=== PATIENT | female | born 1950 | race Caucasian/White ===

== ENCOUNTER 2021-09-19 14:51 | Emergency (ER) | payer MEDICARE, MEDICAID ==
[~2021-09-19] VITALS: Wt 65.3 kg
[2021-09-19 15:24] LABS: BASO % 0.3 % (0.0-1.0); EOS # 0.3 10*3/uL (0.0-0.4); EOS % 3.8 % (1.0-4.0); HEMATOCRIT 34.5 % (37.0-47.0); LYMPH # 1.5 10*3/uL (1.3-4.4); MEAN CELL VOLUME 79.5 fl (81.0-99.0); MEAN CORPUSCULAR HGB 25.1 pg (27.0-31.0); MEAN CORPUSCULAR HGB CONC 31.6 g/dl (33.0-37.0); MEAN PLATELET VOLUME 8.7 fl (9.6-12.3); MONO # 0.7 10*3/uL (0.1-1.0); MONO % 8.9 % (3.0-9.0); NEUT # 4.9 10*3/uL (2.3-7.9); NEUT % 66.6 % (47.0-73.0); PLATELET COUNT AUTOMATED 619 10*3/uL (130-400); RED BLOOD COUNT 4.34 10*6/uL (4.10-5.10); RED CELL DISTRI WIDTH 17.2 % (0-14.5); WHITE BLOOD COUNT 7.4 10*3/uL (4.8-10.8)
[2021-09-19 15:40] LABS: ALKALINE PHOSPHATASE 85 U/L (45-117); BUN 35 mg/dl (7-24); CHLORIDE 105 mmol/L (98-107); CREATININE 0.91 mg/dL (0.55-1.02); POTASSIUM 3.6 mmol/L (3.5-5.1); SGOT/AST 17 IU/L (3-35); SGPT/ALT 14 U/L (12-78); SODIUM 135 mmol/L (136-145); TOTAL PROTEIN 7.6 gm/dL (6.4-8.2)
== END 2021-09-19 17:14 ==
LOC: ED 14:51
PROVIDERS: Family Medicine
DX: T81.89XA Other complications of procedures, not elsewhere classified, initial encounter (principal); Y92.89 Other specified places as the place of occurrence of the external cause

== ENCOUNTER 2021-10-13 13:20 | Emergency (ER) | payer MEDICARE, MEDICAID ==
[~2021-10-13] VITALS: Ht 157.4 cm; Wt 53.5 kg
[~2021-10-13 13:20] MED LIST: ARGINAID POWDE1 EACH PO; DOXYCYCLINE50 M2 PO; FISH OIL + D31 EACH PO; FLUVOXAMINE MA150 M1 PO; LEVOTHYROXINE100 MC2 PO; MELOXICAM15 MG PO; MIRALAX17 GM PO; OMEPRAZOLE20 M2 PO; PAIN RELIEVER325 MG PO; PHOS-NAK PACKE1 EACH PO; SEROQUEL400 M1 PO; XANAX0.5 MG PO
[2021-10-13 13:59] LABS: BASO % 0.5 % (0.0-1.0); EOS # 0.3 10*3/uL (0.0-0.4); EOS % 4.4 % (1.0-4.0); HEMATOCRIT 37.5 % (37.0-47.0); LYMPH # 1.8 10*3/uL (1.3-4.4); LYMPH % 26.8 % (27.0-41.0); MEAN CELL VOLUME 81.5 fl (81.0-99.0); MEAN CORPUSCULAR HGB 25.4 pg (27.0-31.0); MEAN CORPUSCULAR HGB CONC 31.2 g/dl (33.0-37.0); MEAN PLATELET VOLUME 8.7 fl (9.6-12.3); MONO # 0.5 10*3/uL (0.1-1.0); MONO % 7.4 % (3.0-9.0); NEUT # 4.1 10*3/uL (2.3-7.9); NEUT % 60.7 % (47.0-73.0); PLATELET COUNT AUTOMATED 464 10*3/uL (130-400); RED CELL DISTRI WIDTH 18.5 % (0-14.5); WHITE BLOOD COUNT 6.7 10*3/uL (4.8-10.8)
[2021-10-13 14:19] LABS: ALKALINE PHOSPHATASE 82 U/L (45-117); BUN 28 mg/dl (7-24); CHLORIDE 108 mmol/L (98-107); CREATININE 0.83 mg/dL (0.55-1.02); POTASSIUM 3.4 mmol/L (3.5-5.1); SGOT/AST 17 IU/L (3-35); SGPT/ALT 15 U/L (12-78); SODIUM 141 mmol/L (136-145); TOTAL PROTEIN 6.7 gm/dL (6.4-8.2)
[2021-10-13 15:21] LABS: BILIRUBIN 1+ (Negative); BLOOD Negative (Negative); CLARITY Cloudy (Clear); COLOR Dark Yellow (Yellow); GLUCOSE Negative (Negative); KETONE Negative (Negative); LEUKO ESTERASE 1+ (Negative); NITRITE Negative (Negative); SPECIFIC GRAVITY 1.025 (1.001-1.030)
[2021-10-13 15:29] LABS: BACTERIA TRACE; MUCOUS 2+; WBC 21-30 wbc/hpf (0-5); YEAST 1+
== END 2021-10-13 19:09 ==
LOC: ED 13:20
PROVIDERS: Emergency Medicine
DX: L89.229 Pressure ulcer of left hip, unspecified stage (principal); L89.219 Pressure ulcer of right hip, unspecified stage; Z79.899 Other long term (current) drug therapy; K21.9 Gastro-esophageal reflux disease without esophagitis; E03.9 Hypothyroidism, unspecified; I48.91 Unspecified atrial fibrillation; Z90.710 Acquired absence of both cervix and uterus

== ENCOUNTER → 2021-10-16 | Outpatient (CLI) | payer MEDICARE, MEDICAID | LOC: WOUNDCARE 03:47 | PROVIDERS: ATTEND Nurse Practitioner Family | DX: L89.213 Pressure ulcer of right hip, stage 3 (principal); I48.91 Unspecified atrial fibrillation; E03.9 Hypothyroidism, unspecified; F90.9 Attention-deficit hyperactivity disorder, unspecified type; Z90.710 Acquired absence of both cervix and uterus ==

== ENCOUNTER → 2021-11-01 | Outpatient (CLI) | payer MEDICARE, MEDICAID | END | disposition home or self-care (01) | LOC: WOUNDCARE 01:44 | PROVIDERS: ATTEND Nurse Practitioner Family | DX: L89.213 Pressure ulcer of right hip, stage 3 (principal); I48.91 Unspecified atrial fibrillation; E03.9 Hypothyroidism, unspecified; F90.9 Attention-deficit hyperactivity disorder, unspecified type; Z90.710 Acquired absence of both cervix and uterus ==

== ENCOUNTER → 2021-11-08 | Outpatient (CLI) | payer MEDICARE, MEDICAID | END | disposition home or self-care (01) | LOC: WOUNDCARE 02:17 | PROVIDERS: ATTEND Nurse Practitioner Family | DX: L89.213 Pressure ulcer of right hip, stage 3 (principal); I48.91 Unspecified atrial fibrillation; E03.9 Hypothyroidism, unspecified; F90.9 Attention-deficit hyperactivity disorder, unspecified type; Z90.710 Acquired absence of both cervix and uterus ==

== ENCOUNTER 2022-12-15 05:02 | Emergency (ER) | payer OTHER ==
[~2022-12-15] VITALS: Ht 152.4 cm; Wt 69.4 kg
[2022-12-15 06:42] LABS: BILIRUBIN Negative (Negative); BLOOD 1+ (Negative); CLARITY Clear (Clear); COLOR Yellow (Yellow); GLUCOSE Negative (Negative); KETONE Negative (Negative); LEUKO ESTERASE 2+ (Negative); NITRITE Positive (Negative); SPECIFIC GRAVITY 1.025 (1.001-1.030); UROBILINOGEN 0.2 E.U./dl (0.0-1.0)
[2022-12-15 07:09] LABS: BACTERIA 4+; WBC 31-40 wbc/hpf (0-5)
[2022-12-15 08:30] LABS: BASO % 0.3 % (0.0-1.0); EOS # 0.2 10*3/uL (0.0-0.4); EOS % 1.2 % (1.0-4.0); LYMPH # 1.5 10*3/uL (1.3-4.4); LYMPH % 10.5 % (27.0-41.0); MEAN CORPUSCULAR HGB 23.6 pg (27.0-31.0); MEAN CORPUSCULAR HGB CONC 30.3 g/dl (33.0-37.0); MEAN PLATELET VOLUME 9.2 fl (9.6-12.3); MONO # 0.9 10*3/uL (0.1-1.0); MONO % 6.4 % (3.0-9.0); NEUT # 11.3 10*3/uL (2.3-7.9); NEUT % 81.1 % (47.0-73.0); PLATELET COUNT AUTOMATED 394 10*3/uL (130-400); RED BLOOD COUNT 4.36 10*6/uL (4.10-5.10)
[2022-12-15 08:53] LABS: ALKALINE PHOSPHATASE 81 U/L (46-116); BUN 36 mg/dl (9-23); CHLORIDE 108 mmol/L (98-107); LIPASE 44 U/L (12-53); POTASSIUM 4.4 mmol/L (3.4-5.1); TOTAL PROTEIN 6.8 gm/dL (6.0-8.0)
[2022-12-15 09:09] LABS: SGPT/ALT < 7 U/L (10-49)
[2022-12-15] MEDS ORDERED: SEPTDS PO (10:23)
== END 2022-12-15 10:57 ==
LOC: ED 05:02
PROVIDERS: Internal Medicine
DX: K59.02 Outlet dysfunction constipation (principal); N39.0 Urinary tract infection, site not specified; Z90.710 Acquired absence of both cervix and uterus

== ENCOUNTER 2023-03-29 08:50 | Inpatient (IN) | payer OTHER ==
[~2023-03-29] VITALS: Ht 165.1 cm; Wt 60.8 kg
[~2023-03-29 08:50] MED LIST changes: +SEPTDS PO
[2023-03-29 09:06] VITALS: BP 112/78
[2023-03-29 09:40] LABS: BASO % 0.4 % (0.0-1.0); EOS # 0.3 10*3/uL (0.0-0.4); EOS % 3.2 % (1.0-4.0); HEMATOCRIT 36.4 % (37.0-47.0); LYMPH # 1.3 10*3/uL (1.3-4.4); LYMPH % 14.9 % (27.0-41.0); MEAN CELL VOLUME 70.3 fl (81.0-99.0); MEAN CORPUSCULAR HGB CONC 29.9 g/dl (33.0-37.0); MEAN PLATELET VOLUME 10.1 fl (9.6-12.3); MONO # 0.5 10*3/uL (0.1-1.0); MONO % 5.5 % (3.0-9.0); NEUT # 6.5 10*3/uL (2.3-7.9); NEUT % 75.6 % (47.0-73.0); PLATELET COUNT AUTOMATED 325 10*3/uL (130-400); RED BLOOD COUNT 5.18 10*6/uL (4.10-5.10); RED CELL DISTRI WIDTH 17.7 % (0-14.5); WHITE BLOOD COUNT 8.5 10*3/uL (4.8-10.8)
[2023-03-29 09:53] LABS: ACT PARTIAL THROMBO TIME 28.2 SECONDS (20.0-32.1)
[2023-03-29 10:07] LABS: ALKALINE PHOSPHATASE 125 U/L (46-116); BUN 26 mg/dl (9-23); CHLORIDE 106 mmol/L (98-107); LIPASE 39 U/L (12-53); POTASSIUM 4.2 mmol/L (3.4-5.1); SGPT/ALT 18 U/L (5-49); TOTAL PROTEIN 7.2 gm/dL (6.0-8.0)
[2023-03-29 10:25] VITALS: BP 168/99
[2023-03-29 11:32] LABS: BILIRUBIN Negative (Negative); BLOOD Negative (Negative); CLARITY Clear (Clear); COLOR Yellow (Yellow); GLUCOSE Negative (Negative); KETONE Negative (Negative); LEUKO ESTERASE Trace (Negative); NITRITE Negative (Negative); PH 5.5 (4.5-8.0)
[2023-03-29 11:43] LABS: RBC 0-2 rbc/hpf (0-2)
[2023-03-29 11:44] LABS: MUCOUS TRACE
[2023-03-29] MEDS ORDERED: FLUVOXAMINE100 MG PO (21:11)
[2023-03-29] MEDS ORDERED: KEPPRA1000 MG PO (21:12)
[2023-03-29] MEDS ORDERED: LEVOTHYROXINE100 MC2 PO (21:12)
[2023-03-29] MEDS ORDERED: MELOXICAM15 MG PO (21:13)
[2023-03-29] MEDS ORDERED: OMEPRAZOLE20 M3 PO (21:13)
[2023-03-29] MEDS ORDERED: TRANSDERM-SCOP1 EAC1 TD (21:14)
[2023-03-29] MEDS ORDERED: XANAX0.5 MG PO (21:14)
[2023-03-29 22:04] VITALS: BP 93/57
[2023-03-29 22:15] VITALS: BP 99/65
[2023-03-29] MEDS ORDERED: COL-RITE100 M1 PO (22:51)
[2023-03-29] MEDS ORDERED: DULCOLAX5 M1 PO (22:52)
[2023-03-30 06:41] LABS: BASO % 0.3 % (0.0-1.0); EOS # 0.2 10*3/uL (0.0-0.4); HEMATOCRIT 33.1 % (37.0-47.0); LYMPH # 1.5 10*3/uL (1.3-4.4); LYMPH % 25.9 % (27.0-41.0); MEAN CELL VOLUME 71.2 fl (81.0-99.0); MEAN CORPUSCULAR HGB 21.3 pg (27.0-31.0); MEAN CORPUSCULAR HGB CONC 29.9 g/dl (33.0-37.0); MEAN PLATELET VOLUME 9.8 fl (9.6-12.3); MONO # 0.6 10*3/uL (0.1-1.0); MONO % 9.7 % (3.0-9.0); NEUT # 3.4 10*3/uL (2.3-7.9); NEUT % 59.8 % (47.0-73.0); PLATELET COUNT AUTOMATED 255 10*3/uL (130-400); RED BLOOD COUNT 4.65 10*6/uL (4.10-5.10); RED CELL DISTRI WIDTH 17.6 % (0-14.5); WHITE BLOOD COUNT 5.8 10*3/uL (4.8-10.8)
[2023-03-30 07:05] LABS: ALKALINE PHOSPHATASE 115 U/L (46-116); BUN 30 mg/dl (9-23); CHLORIDE 107 mmol/L (98-107); POTASSIUM 3.8 mmol/L (3.4-5.1); SGPT/ALT 16 U/L (5-49); TOTAL PROTEIN 6.8 gm/dL (6.0-8.0)
[2023-03-30 08:00] VITALS: BP 99/61
== END 2023-03-30 12:18 | DRG 101 ==
LOC: ED 08:50 → EDHOLD 17:23 → 5E 21:19
PROVIDERS: Emergency Medicine; Student in an Organized Health Care Education/Training Program; ADMIT Student in an Organized Health Care Education/Training Program; ATTEND Student in an Organized Health Care Education/Training Program
DX: G40.909 Epilepsy, unspecified, not intractable, without status epilepticus (principal); E87.20 Acidosis, unspecified; I16.0 Hypertensive urgency; Z66 Do not resuscitate; D50.9 Iron deficiency anemia, unspecified; R74.8 Abnormal levels of other serum enzymes; Z82.49 Family history of ischemic heart disease and other diseases of the circulatory system; Z88.2 Allergy status to sulfonamides; Z88.1 Allergy status to other antibiotic agents; Z91.041 Radiographic dye allergy status; Z51.5 Encounter for palliative care